=== PATIENT | female | born 1960 | race Caucasian/White ===

== ENCOUNTER 2018-05-11 17:39 | Emergency (ER) | payer SELFPAY ==
[~2018-05-11] VITALS: Ht 157.5 cm; Wt 71.0 kg
[2018-05-11 17:53] LABS: GLUCOSE,POINT OF CARE 147 MG/DL (70-110)
[2018-05-11] MEDS ORDERED: TRAZ-219 PO (18:05)
[2018-05-11] MEDS ORDERED: METF500T6 PO (18:05)
[2018-05-11] MEDS ORDERED: ALPR0.255 PO (18:05)
[2018-05-11] MEDS ORDERED: ALPR0.5T8 PO (18:05)
[2018-05-11] MEDS ORDERED: ALBU8HFA IH (18:05)
[2018-05-11] MEDS ORDERED: LORA0.5T2 PO (18:05)
[2018-05-11] MEDS ORDERED: SIMV-259 PO (18:05)
[2018-05-11 18:28] LABS: BASOPHILS % (AUTO) 0.1 % (0.0-2.0); EOSINOPHILS % (AUTO) 0 % (1.0-6.0); HEMATOCRIT 43.4 % (36-46); HEMOGLOBIN 14.9 g/dL (12.0-16.0); LYMPHOCYTES % (AUTO) 16.9 % (22.0-44.0); MEAN CORPUSCULAR HEMOGLOBIN 31.4 pg (26.0-34.0); MEAN CORPUSCULAR HGB CONC 34.4 G/dL (31.0-37.0); MEAN CORPUSCULAR VOLUME 91 fL (80-100); MONOCYTES # (AUTO) 0.6 K/uL (0.1-1.0); MONOCYTES % (AUTO) 5.2 % (2.0-9.0); NEUTROPHILS # (AUTO) 9.3 K/uL (1.8-7.7); NEUTROPHILS % (AUTO) 77.8 % (40.0-70.0); PLATELET COUNT (AUTO) 256 K/uL (150-450); RED BLOOD CELL COUNT(AUTO) 4.75 MIL/uL (4.00-5.20); RED CELL DISTRIBUTION WIDTH 14.3 % (11.5-14.5)
[2018-05-11 18:40] LABS: ANION GAP 14 mmol/L (8-16); CALCIUM, TOTAL 8.7 mg/dL (8.8-10.5); CARBON DIOXIDE 21 mmol/L (22-29); CHLORIDE 106 mmol/L (98-107); CREATININE 1.05 mg/dL (0.60-1.30); GLOMERULAR FILTR. RATE CALC 54 mL/min (>60); GLUCOSE,RANDOM 145 mg/dL (70-110); POTASSIUM 3.6 mmol/L (3.5-5.1); SODIUM SERUM 141 mmol/L (136-145); UREA NITROGEN, BLOOD 11 mg/dL (7-18)
[2018-05-11 18:44] LABS: ACETAMINOPHEN < 2 mcg/mL (10-30); ALANINE AMINOTRANSFERASE 32 U/L (12-78); ASPARTATE AMINOTRANSFERASE 18 U/L (15-37)
[2018-05-11 18:48] LABS: AMPHET/METH SCREEN,URINE NEGATIVE (NEGATIVE); BARBITURATE SCREEN, URINE NEGATIVE (NEGATIVE); BENZODIAZEPINES SCREEN,URINE POSITIVE (NEGATIVE); CANNABINOID SCREEN,URINE NEGATIVE (NEGATIVE); COCAINE SCREEN,URINE NEGATIVE (NEGATIVE); METHADONE SCREEN, URINE NEGATIVE (NEGATIVE); OPIATE SCREEN,URINE NEGATIVE (NEGATIVE)
[2018-05-11 18:53] LABS: PHENCYCLIDINE SCREEN,URINE NEGATIVE (NEGATIVE)
[2018-05-11 19:07] LABS: ALKALINE PHOSPHATASE 105 U/L (46-116); BILIRUBIN,TOTAL 0.1 mg/dL (0.1-1.0); TOTAL PROTEIN, SERUM 8.1 g/dL (6.4-8.2)
[2018-05-11 19:26] LABS: SALICYLATE < 2.8 mg/dL (2.8-20.0)
[2018-05-11] MEDS ORDERED: LORazepam 2 MG TABLET PO ONE ×2 (20:15→20:30)
[2018-05-11 20:28] VITALS: BP 120/84
== END 2018-05-11 20:40 | disposition home or self-care (01) ==
LOC: EMS 17:39
DX: F41.9 Anxiety disorder, unspecified (principal); T49.4X5A Adverse effect of keratolytics, keratoplastics, and other hair treatment drugs and preparations, initial encounter; R45.851 Suicidal ideations; F10.10 Alcohol abuse, uncomplicated; X58.XXXA Exposure to other specified factors, initial encounter; E11.9 Type 2 diabetes mellitus without complications; J45.909 Unspecified asthma, uncomplicated; F32.9 Major depressive disorder, single episode, unspecified; E78.00 Pure hypercholesterolemia, unspecified; Y92.89 Other specified places as the place of occurrence of the external cause
CPT/HCPCS: 36415; 80053; 80307; 82962; 83735; 85025; 93005; 99285; G0480 ×2; G0481